=== PATIENT | female | born 1975 | race Caucasian/White ===

== ENCOUNTER → 2025-04-09 14:39 | Outpatient (REF) | payer BC, SELFPAY | LOC: DHSLP 14:39 | PROVIDERS: ATTENDING PHYSICIAN Internal Medicine Critical Care Medicine; FAMILY PHYSICIAN Otolaryngology | DX: G47.33 Obstructive sleep apnea (adult) (pediatric) (principal) | CPT/HCPCS: 95806 ==

== ENCOUNTER 2025-09-02 01:06 | Emergency (ER) | payer BC, SELFPAY ==
[2025-09-02 01:11] VITALS: BP 142/106
[2025-09-02 01:33] VITALS: BP 102/78
[2025-09-02 02:00] VITALS: BP 126/97
--- NOTE | 2025-09-02 02:01 | ED.GENMED ---
History of Present Illness
General
Chief Complaint: Musculo-Skeletal Complaint
Source: patient
Exam Limitations: none
Time Seen by Provider: 09/02/25 01:45
Nursing documentation reviewed up to this point in time: agreed with
History of Present Illness
History of Present Illness:
Patient presents to ED secondary to persistent left foot pain, after tripping over the curb and falling down, twisting her foot in the process. Denies direct trauma. Denies loss of sensation or weakness. Patient reports minimal pain at rest, but
difficult to weight-bear due to pain. Denies previous history of injury.
Past History
Past History
ED Past Medical History: Psychiatric
ED Past Surgical History: and Gynecological
Social History
Tobacco: Non-smoker
Personal:
Living: with family
Family History
Family History: Negative Early CAD
Review of Systems
Review of Systems
Allergies reviewed?: Yes
All Other Systems: ROS reviewed and negative except as documented in HPI and ROS
Constitutional: Reports no symptoms
Musculoskeletal: Reports other (foot pain)
Skin: Reports no symptoms
Neurological: Reports no symptoms
Phy Exam
Physical Exam
Physical Exam:
Physical Exam
General: mild painful distress, not acutely ill. afebrile
Head: nc/at. eomi
Neck: supple. normal range of motion
Neuro: alert and oriented x 3. no focal neurological deficits
Skin: no rash
Psychiatric: well kept. interactive and cooperative
Extremities: no edema. no calf tenderness.
Course
Orders/Labs/Results
Orders:
Orders
09/02/25 01:16
Ankle, left 3 view CR [CR Ankle - Left Min 3 Views ] Urgent
Comment:
Reason For Exam: injury
09/02/25 02:01
Ibuprofen [Motrin] 400 mg PO NOW STA
09/02/25 02:17
Ibuprofen [Motrin] 400 mg .ROUTE .STK-MED ONE
Vital Signs
Initial and Last Documented VS:
Initial Vital Signs
Temp Pulse Resp BP Pulse Ox
97.2 F 107 20 142/106 95
09/02/25 01:11 09/02/25 01:11 09/02/25 01:11 09/02/25 01:11 09/02/25 01:11
Last Documented Vital Signs
Temp Pulse Resp BP Pulse Ox
97.2 F 107 20 126/97 97
09/02/25 01:11 09/02/25 01:11 09/02/25 01:11 09/02/25 02:00 09/02/25 02:01
MDM/Problems Addressed
MDM/Problems Addressed:
History and exam consistent with likely mild foot sprain. Patient otherwise is neurologically intact. Patient will be provided with Ortho/walking boot, with recommendation to follow-up with PCP for reevaluation.
*Pulse Oximetry
SaO2: 97
Oxygen Mode of Delivery: Room air
Patient hypoxic: no
*Critical Care Note
Total Time (30-74mins, 75-104mins- exclusive of procedures): Not Applicable
ED Attending Note
-
Portions of this chart may have been created with voice recognition software.� Occasional wrong word or��sound alike� substitutions may have occurred due to the inherent limitations of voice recognition software.
Discharge Plan
Departure
Patient Disposition: Home (Routine Discharge)
Date of Disposition: 09/02/25
Time of Disposition: 02:01
Patient with high blood pressure during this ER visit?: Yes
Condition: Good
Discharge Problem:
Foot sprain
Instructions: Walking Boot, Foot sprain - ED (DC)
Prescriptions:
No Action
sertraline 25 MG tablet
25 mg PO DAILY
levofloxacin 250 MG tablet
750 mg PO DAILY Qty: 30 0RF
Rx Instructions:
take for 10 more days
guaifenesin 200 MG/10 ML liquid
200 mg PO Q4HPRN PRN (Reason: cough) 0RF
guaifenesin [Mucus Relief ER] 600 MG tablet extended release 12hr
600 mg PO Q12 0RF
prednisone 10 MG tablet
10 mg PO .TAPER Qty: 30 0RF
Rx Instructions:
Take 40mg daily x3days, 30mg daily x3days,
20mg daily x3days, 10mg daily x3days.
prednisone 50 mg tablet
50 mg PO DAILY 4 Days Qty: 4 0RF
Referrals:
Skyler Joseph MD [Family Provider, Internal Medicine]
Activity Restrictions/Additional Instructions:
As discussed, please follow-up with your primary care physician and/or orthopedic surgeon for reevaluation.
Interventions
Interventions:
*Risk Screen - Suicide Last Done: 09/02/25 01:11
*General Assessment Last Done: 09/02/25 01:11
*Neglect/Abuse Screening Last Done: 09/02/25 01:11
*ED- Fall Risk Assessment Last Done: 09/02/25 01:11
*ED COVID-19 Vaccine History Last Done: 09/02/25 01:11
*ED Influenza Vaccine History Last Done: 09/02/25 01:11
*Nursing Disposition Last Done: 09/02/25 02:29
ED-Musculoskeletal Assessment Last Done: 09/02/25 01:38
Discharge Date and Time
Discharge Date/Time: 09/02/25 02:30
Print Language: LITHUANIAN
[2025-09-02] MEDS: MOTRIN 400 MG PO (02:16)
== END 2025-09-02 02:30 | disposition home or self-care (01) ==
LOC: EMR 01:06
PROVIDERS: EMERGENCY PHYSICIAN Emergency Medicine; FAMILY PHYSICIAN Internal Medicine
DX: S93.602A Unspecified sprain of left foot, initial encounter (principal); W10.1XXA Fall (on)(from) sidewalk curb, initial encounter; X50.1XXA Overexertion from prolonged static or awkward postures, initial encounter
CPT/HCPCS: 99283; 73610